=== PATIENT | male | born 1955 | race Caucasian/White ===

== ENCOUNTER 2018-04-21 09:03 | Inpatient (IN) ==
[2018-04-21 11:09] LABS: BASO# 0.02 X1000 (0.0-0.2); BASO% 3.9 % (0.0-0.8); EOS# 0.16 X1000 (0.0-0.7); EOS% 31.4 % (0.0-10.0); HEMATOCRIT 31.1 % (42.0-52.0); HEMOGLOBIN 10.3 g/dL (14.0-18.0); LYMPH# 0.28 X1000 (1.2-3.4); LYMPH% 54.9 % (20.5-51.1); MCH 29.8 PG (27-31); MCHC 33.1 g/dL (33-37); MCV 89.9 FL (81-99); MONO# 0.02 X1000 (0.11-0.59); MONO% 3.9 % (1.7-9.3); MPV 10.4 FL (7.4-10.4); NEUT% 5.9 % (42.2-75.2); PLT 88 X1000 (130-400); RBC 3.46 XMIL (4.7-6.1); RDW 16.3 % (11.5-14.5); WBC 0.51 X1000 (4.8-10.8)
[2018-04-21] MEDS ORDERED: NS 1,000 ML IV SCH (11:15)
[2018-04-21 11:16] LABS: NEUT# 0.03 X1000 (1.4-6.5)
[2018-04-21 11:34] LABS: AGAP 12; ALB/GLOB RATIO 1.3; ALBUMIN 3.6 g/dL (3.5-5.0); ALKALINE PHOSPHATASE 119 U/L (32-122); BUN 6 mg/dL (8-22); CALCIUM 8.2 mg/dL (8.8-10.2); CHLORIDE 100 mmol/L (98-107); COSMO 276; CREATININE 0.6 mg/dL (0.7-1.2); ESTIMATED GFR > 60; GLUCOSE 141 mg/dL (70-104); GOT 31 U/L (10-34); GPT 41 U/L (10-44); POTASSIUM 2.9 mmol/L (3.5-5.1); SODIUM 138 mmol/L (136-145); TCO2 26 mmol/L (25-35); TOTAL BILIRUBIN 1.12 mg/dL (0.20-1.00); TOTAL PROTEIN 6.4 g/dL (6.3-8.3)
[2018-04-21 11:37] LABS: EOS 20 % (1-10); LYMPHS 70 % (21-51); MONO 5 % (1-9)
[2018-04-21 11:38] LABS: URINE SOURCE CLEAN CATCH
[2018-04-21 11:39] LABS: HYPOCHROM 1+
[2018-04-21 11:47] LABS: BILIRUBIN URINE SMALL (NEGATIVE); BLOOD URINE NEGATIVE (NEGATIVE); COLOR ORANGE; GLUCOSE URINE TRACE mg/dL (NEGATIVE); KETONE URINE NEGATIVE (NEGATIVE); LEUKOCYTES URINE NEGATIVE (NEGATIVE); NITRITE URINE NEGATIVE (NEGATIVE); PH URINE 6.5; PROTEIN URINE 100 mg/dL (NEGATIVE); SP GRAVITY URINE 1.026; TURBIDITY URINE HAZY (CLEAR); UROBILINOGEN URINE 2 mg/dL (NORMAL)
[2018-04-21 11:51] LABS: UR EPITHELIAL CELLS >10 /HPF (<10); URINE BACTERIA NEGATIVE /HPF; URINE RBC <10 /HPF (<10)
[2018-04-21] MEDS ORDERED: POTASSIUM CHLORIDE 60 MEQ in NS 500 ML IV ONE (11:56)
[2018-04-21 12:00] LABS: URINE CASTS GRANULAR PRESENT; URINE SMALL ROUND CELLS RENAL PRESENT
--- NOTE | 2018-04-21 12:11 | Diag Imaging Result Doc PS360 ---
EXAM: CT ABD/PELVIS W/IV CONT ONLY HISTORY: metastatic lymphoma TECHNIQUE: CT abdomen and pelvis with intravenous contrast COMPARISON: 03/26/2018 FINDINGS: The gallbladder has been removed. There is fatty infiltration of the liver. No significant change in the size of the spleen. Normal pancreas and adrenal glands. No solid renal mass. No hydronephrosis. No aortic aneurysm. There are mildly enlarged para-aortic and pericaval lymph nodes. No significant change in size. Small scattered mesenteric nodes are also similar. No bowel obstruction. No inflammation about the cecum. No abscess. There are scattered colonic diverticula. The urinary bladder is moderately distended and is normal. The appearance of the bones are unchanged compared to the prior study. IMPRESSION: Stable CT of the abdomen and pelvis. This exam was performed using automated exposure control, adjustment of mA or kV according to patient size, and/or use of iterative reconstruction technique. Electronically signed by Joshua Farias 04/21/2018 12:09 PM
--- NOTE | 2018-04-21 12:55 | PROVIDER DOCUMENTATION ---
This chart was entered by Cira Shaw Scribe, acting as scribe for Efren Granados MD. HPI-Abdominal Pain/GI Problem - General Chief Complaint: Abdominal Pain Stated Complaint: COLITIS? CANCER PT ON TREATMENT Time Seen by Provider: 04/21/18 10:23 Source: patient, family () Allergies/Adverse Reactions: Patient Allergies Allergy/AdvReac Type Severity Reaction Status Date / Time codeine Allergy VOMITING Verified 02/19/18 10:10 Home Medications: Home Medication List Medication Instructions Recorded Confirmed Last Taken Type Allopurinol 300 mg PO ORDERED 04/03/14 04/14/18 04/14/18 History Alprazolam [Xanax] 1 mg PO BID 04/03/14 04/14/18 04/14/18 History Citalopram [Celexa] 20 mg PO DAILY 04/03/14 04/14/18 04/14/18 History Levothyroxine [Synthroid] 100 mcg PO DAILY 04/03/14 04/14/18 04/14/18 History Losartan/Hydrochlorothiazide 1 dose PO DAILY 04/03/14 04/14/18 04/14/18 History [Hyzaar 100-25 Tablet] Montelukast [Singulair] 10 mg PO DAILY 08/22/17 04/14/18 04/13/18 History Omeprazole [Prilosec] 40 mg PO DAILY 02/02/18 04/14/18 04/14/18 History Finasteride [Proscar] 5 mg PO DAILY 02/18/18 04/14/18 04/14/18 History Temazepam [Restoril] 15 mg PO QHS 03/26/18 04/14/18 04/13/18 History Diphenhyramine/Al&mg Oh/Lido [Mbx 15 ml MT 4XDAY PRN PRN #1 bottle 04/01/18 Unknown Rx Solution] Potassium Chloride E.r. [Klor-Con] 40 meq PO BID #10 tab 04/01/18 04/14/18 Unknown Rx Promethazine [Phenergan] 12.5 mg PO Q4-6H PRN PRN #20 tab 04/01/18 04/14/18 Rx Hydrocodone/APAP 10 mg/325 mg 0.5 each PO Q4H PRN PRN 04/14/18 04/14/18 History [[place]-10] - History of Present Illness-ABD Nature of Presenting Problems: 62 yowm presents to the ed with c/o abdominal pain, dysuria, decreased appetite , dehydration, and diarrhea.. pt sts was admitted 3 weeks prior with colitis and feels this may be the same. pt is currently receiving tx for Hodgkins Lymphoma and last chemo tx was 1 week prior. pt has port in rt upper chest. pt Abdominal Pain Onset Location: reports: generalized abdomen Quality of Pain: reports: aching Severity in ED: reports: moderate (11/27) Onset/Duration: reports: this morning (0400am) Timing: reports: still present Activities at Onset: reports: light activity Exposure to sick contacts?: No Modifying Factors: improves with: nothing Associated Symptoms: reports: diarrhea, genitourinary problems (dysuria), loss of appetite, malaise, muscle aches. denies: chest pain, fever/chills, nausea, shortness of breath, vomiting Last BM: last night Dark Stools Present?: reports: none noticed Rectal Bleeding: reports: none # of Diarrhea Episodes: 2 Rectal Pain: reports: none # of Vomiting Episodes: 0 Emesis Description: reports: none Bruising or Bleeding Gums?: No Similar Symptoms Previously?: Yes (colitis 3 weeks prior) Recently seen or treated by another doctor?: Yes (was admitted to hosp) Review of Systems - Adult - REVIEW OF SYSTEMS - ADULT Constitutional: reports: see HPI, weight loss (40lbs in 6 months). denies: chills, fever Eyes: reports: no symptoms reported Ears, Nose, Mouth & Throat: reports: no symptoms reported Cardiovascular: denies: chest pain, palpitations Respiratory: denies: shortness of breath, wheezing Gastrointestinal: reports: see HPI, abdominal pain, diarrhea, poor appetite. denies: nausea, vomiting Genitourinary: reports: see HPI, dysuria Musculoskeletal: reports: see HPI, muscle aches Integumentary: reports: see HPI, hair loss (due to chemo) Neurological: denies: dizziness/vertigo, headache/migraines, slurred speech Psychiatric: reports: no symptoms reported Endocrine: reports: no symptoms reported Hematologic/Lymphatic: reports: no symptoms reported Allergic/Immunologic: reports: no symptoms reported All Other Systems: Reviewed and Negative Past History - Adult - PAST MEDICAL HISTORY-ADULT Review of Records: reports: Old Records Reviewed, Nursing Assessment Review, Medications Reviewed, Social history reviewed & non-contributory. Major Childhood Illnesses: reports: denies history Cardiovascular: reports: HTN Respiratory: reports: denies history Gastrointestinal: reports: GERD Genitourinary: reports: denies history Musculoskeletal: reports: denies history Neurological: reports: denies history Psychiatric: reports: depression Endocrine/Immune: reports: denies history Other Conditions: reports: other cancer (hodgkins lymphoma) - PRIOR SURGERIES/PROCEDURES Surgical/Procedure History: reports: appendectomy, cholecystectomy, other ( sinus sx) - IMMUNIZATION STATUS Childhood Immunizations: See Nurse Assessment Flu Vaccine: See Nurse Assessment - FAMILY HISTORY Family History: reviewed, not pertinent - SOCIAL HISTORY Smoking: denies Substance Use: denies Living Situation: family Physical Exam-General - PHYSICAL EXAM-ADULT Initial Vital Signs Reviewed: Yes - CONSTITUTIONAL General Appearance: alert, no apparent distress, obese - EYES Eyes: PERRL/EOMI, pale conjunctivae - HEAD, EARS, NOSE, MOUTH & THROAT HENMT: normocephalic/atraumatic. negative: moist mucous membranes - NECK Neck: normal inspection - RESPIRATORY Respiratory: chest non-tender, lungs clear, normal breath sounds - CARDIOVASCULAR Cardiovascular: normal peripheral pulses, tachycardia (114) - CHEST (BREASTS) Chest/Breast: other (port placed in rt upper chest) - GASTROINTESTINAL (ABDOMEN) Abdominal Exam: normal bowel sounds, soft, tenderness (generalized), other ( well healed scar on rt side of abdoman from previous sx) - LYMPHATIC Lymphatic: no adenopathy - MUSCULOSKELETAL Back Exam: normal inspection, no CVA tenderness, no vertebral tenderness Extremity: normal range of motion, non-tender, no pedal edema, no calf tenderness, normal capillary refill, pelvis stable - SKIN Integumentary: warm/dry, pallor - NEUROLOGIC Neurologic: grossly normal, no motor/sensory deficits - PSYCHIATRIC Psych/Mental Status: normal mood/affect, normal thought content, normal thought process, oriented x 3 Progress - PLAN OF CARE/RESULTS Progress/Plan/Lab Results: Vital Signs - 8 hr 04/21/18 09:09 Temperature 98.2 F Pulse Rate 114 H Respiratory Rate 22 Blood Pressure 116/63 O2 Sat by Pulse Oximetry 98 pt sts thursday he saw his oncologist and is WC 4.4. Result Diagrams: 04/21/18 10:44 04/21/18 10:44 - REASSESSMENT Reassessment #1 Time Reassessed: 11:09 (pt sts took pain meds this morning at 0400am and ate some crackers) Reassessment #2 Time Reassessed: 12:21 Status: unchanged Reassessment Comment: dr at bedside - CT/MRI 1 CT Study: Abdomen (EXAM: CT ABD/PELVIS W/IV CONT ONLY HISTORY: metastatic lymphoma TECHNIQUE: CT abdomen and pelvis with intravenous contrast COMPARISON: 03/26/2018 FINDINGS: The gallbladder has been removed. There is fatty infiltration of the liver. No significant change in the size of the spleen. Normal pancreas and adrenal glands. No solid renal mass. No hydronephrosis. No aortic aneurysm. There are mildly enlarged para-aortic and pericaval lymph nodes. No significant change in size. Small scattered mesenteric nodes are also similar. No bowel obstruction. No inflammation about the cecum. No abscess. There are scattered colonic diverticula. The urinary bladder is moderately distended and is normal. The appearance of the bones are unchanged compared to the prior study. IMPRESSION: Stable CT of the abdomen and pelvis. This exam was performed using automated exposure control, adjustment of mA or kV according to patient size, and/or use of iterative reconstruction technique. Electronically signed by Joshua Farias 04/21 12:09 PM 04/21/18 1209 Interpreting Physician: Joshua Farias MD Dictated Date/Time: 04/21/18 1204 cc: Efren Granados MD; KAYLYNN STEWART), Pelvis - CONSULTS/PCP/HOSPITALIST Notification #1 *Consult/PCP/Hospitalist*: hospitalist dr castro Time Discussed: 12:28 Consult Disposition: Admit Departure - Departure Date of Disposition Decision: 04/21/18 Time of Disposition Decision: 12:29 DIAGNOSIS: Chemotherapy-induced neutropenia Hodgkin's lymphoma Qualifiers: Hodgkin lymphoma type: unspecified type Lymphoma site: unspecified region Qualified Code(s): C81.90 - Hodgkin lymphoma, unspecified, unspecified site Disposition: ADMITTED INPATIENT 09 Certified Medical Emergency: Emergent Condition: Stable Referrals and Follow-Ups: KAYLYNN STEWART [Primary Care Provider] - - Critical Care Note This patient required my direct & personal management of CC.: Yes Total Time (mins): 39 Critical Care Statement: This patient required my direct personal management to treat or rule out processes, the absence of which, could potentiallly result in sudden, clinically significant life or limb threatening deterioration. Comments: abnormal labs with tachycardia 114 Attestation - Physician/ ARVIND Attestation The physician spent face to face time with patient:: Yes Advanced Practice Provider documentation review:: Supervising physician onsite and consulted in the evaluation and care of this patient. The physician did have a face to face encounter with the patient. This chart was documented by the indicated scribe, (Cira Shaw Scribe) and accurately reflects the services I performed and decisions made by me, Efren Granados MD, as attested by the provider's signature.
[2018-04-21] MEDS ORDERED: ZOFRAN IV PRN (13:04)
[2018-04-21] MEDS ORDERED: PHENERGAN PO PRN (13:09)
[2018-04-21] MEDS ORDERED: MBX SOLUTION MT PRN (13:09)
[2018-04-21] MEDS ORDERED: NS 1,000 ML IV ONE ×3 (13:09→13:45)
[2018-04-21] MEDS ORDERED: LEVAQUIN 750 MG/D5W 750 MG/150 ML IVPB IV SCH (13:15)
[2018-04-21] MEDS ORDERED: PROTONIX IV SCH (13:30)
[2018-04-21] MEDS: PHENERGAN IV PRN ×2 (13:40→21:15)
[2018-04-21] MEDS: MORPHINE IV PRN ×2 (13:40→21:15)
[2018-04-21] MEDS: SODIUM CHLORIDE 0.9% INJ PRN (13:47)
--- NOTE | 2018-04-21 14:31 | HISTORY AND PHYSICAL ---
PRIMARY CARE PROVIDER: JAMES Burroughs ONCOLOGIST: Dr. Mullins CHIEF COMPLAINT: Abdominal pain, nausea. HISTORY OF PRESENT ILLNESS: Mr. Enzo Nicholson is a 62-year-old male with a medical history of recent treatment for enterocolitis. He has recently been diagnosed with Hodgkin's lymphoma, January 19, 2018, being followed by Dr. Mullins. He was recently here from 03/26 to 04/01/2018, he was treated for diffuse abdominal pain due to enterocolitis and treated for the enterocolitis along with hypokalemia. He presents with the exact same complaints today. He has had nausea but no vomiting. He has 3-4 adela colored loose stools per day that are small in amount. He states he even took an enema last night because he felt like he needed to have more bowel movement. He eats 3 meals a day, but only 1/3 of the meal he can take. His last meal was yesterday around lunch when he had a small amount of cornbread, a spoon of black -eyed peas, and a small amount of greens. He states the pain is severe, it is just around 1-2 inches below his umbilicus. He also complains of urine being a little darker with a red tinge to it and 101 degree fever last night. Approximately 1 week ago he took the chemo drug that is known as [place], also called Adriamycin, he states he felt good the day after but he usually does , and then his abdominal pain started. So, he has had this pain for at least 1 week. He associates with the exact same pain he felt when he had enterocolitis. The abdominal CT does not show any signs of enterocolitis at this time. He is pancytopenic with an extremely low white count and neutrophil count, and his lactate is up, so he will be treated as if he has enterocolitis with Levaquin and Flagyl. We will also send stool samples for culture. We will admit to a private room for pancytopenia and neutropenia. PAST MEDICAL HISTORY: 1. Hodgkin's lymphoma diagnosed January 19, 2018, being followed by Dr. Mullins. 2. Hypertension. 3. Coronary artery disease. 4. GERD. 5. BPH. 6. Gout. 7. Right ear Meniere's disease. 8. Hypothyroidism. 9. Anxiety and depression. 10. Insomnia. 11. Chronic hypokalemia. SURGICAL HISTORY: 1. On 02/19/2018 had right chest Port-A-Cath placed. 2. Appendectomy. 3. Cholecystectomy. 4. Sinus surgery. SOCIAL HISTORY: Denies tobacco, drinks a couple of Chirag and cokes about once a week with one of his friends. He denies any illicit drug use. Lives at home with his . FAMILY HISTORY: Strong family history of coronary artery disease in both mother , father, brother, and sister, and mother also had congestive heart failure. ALLERGIES: CODEINE. HOME MEDICATIONS: Have not been verified. REVIEW OF SYSTEMS: A 14-point review of systems was completed and all are negative except as mentioned above and in HPI. Other positives include a 40 pound weight loss since March 20. PHYSICAL EXAMINATION: VITAL SIGNS: Temperature 98.2. Heart rate 114. Respiratory rate 22. Blood pressure 116/63. O2 saturation 98% on room air. He is 6 feet 3 inches tall, 275 pounds with a BMI 34.4. GENERAL: Mr. Enzo Nicholson is a 62-year-old male. He is in no acute distress. He is able to answer questions appropriately. HEENT: Atraumatic and normocephalic. Pupils are equal, round and reactive to light. Extraocular movements were intact. Mucous membranes are dry. NECK: Trachea midline. CARDIOVASCULAR: S1, S2, tachycardic rate and rhythm. No rubs, gallops, or murmurs. There is trace lower extremity edema. +2 dorsalis and radial pulses. Negative for JVD or carotid bruits. PULMONARY: Clear to auscultation with bilateral breath sounds. No accessory muscle use or work of breathing noted. He is tolerating room air. GASTROINTESTINAL: Soft, tender in the lower midabdominal area, about approximately 2 inches below his umbilicus, severe pain with palpation, hypoactive bowel sounds. EXTREMITIES: Moves all extremities equally with full range of motion. NEUROLOGICAL: A and O x4. Follows commands. Sensory is intact. SKIN: Warm, dry, and intact but pale. LABORATORY DATA: White blood cells 0.51, hemoglobin 10, hematocrit 31, platelet count 88, neutrophil total count 0.03. Sodium 138, potassium 2.9, BUN 6, creatinine 0.6, glucose 141, calcium 8.2, bilirubin 1.12, AST 31, ALT 41, albumin 3.6, serum lactate 2.6. Urinalysis: 100 protein, small bilirubin, 2 urobilinogen dipsticks, 10-20 white blood cells, greater than 10 epithelial cells, small round cells renal presence, urine casts granular present , negative for bacteria, negative for yeast. IMAGING: Abdominopelvic CT was stable, there is scattered colonic diverticula, but essentially negative report, no pertinent findings. ASSESSMENT AND PLAN: 1. Diffuse abdominal pain specifically just below the umbilicus. We will do morphine p.r.n. for pain control. Start him on Levaquin and Flagyl as he was recently treated for enterocolitis although it does not show it on the CT, it can be a post chemo finding. We will do clear liquids for now. Dr. Padron has been reconsulted. 2. Pancytopenia with significant neutropenia. Dr. Mullins consulted, we will do neutropenic diet with private room. 3. Hodgkin's lymphoma followed by Dr. Mullins. 4. Possible sepsis. He is tachycardic, he had a fever he complained of last night, he has elevated lactate of 2.6, we will do a repeat on the lactate. He will get 30 mL/kg of IV fluids, kept on IV fluid hydration and started on Levaquin and Flagyl. 5. Hypokalemia. He is receiving 60 IV and 40 twice a day p.o. 6. Hyperbilirubinemia. This is a new finding, it was normal on the 01 of April at 0.31 and now 1.12. Possibly from chemo or dehydration. He is receiving IV fluids for now. 7. Thrombocytopenia. Platelet count 88 on April 01, it was 325, we will monitor closely for signs or symptoms of bleeding. 8. Anemia. Currently at baseline 10.3 and 31.1. No new changes. 9. Deep venous thrombosis prophylaxis with SCDs. 10.Benign prostatic hypertrophy. Continue home medication once verified. 11.Hypothyroidism. Continue Synthroid. 12.Anxiety and depression. Continue with Xanax. 13.Hypertension. Awaiting for home medication reconciliation. 14.History of coronary artery disease. Denies chest pain. Dictated by JAMES Kim for Chente Mckenzie MD cc: JAMES Kim MD Sammy Becdach, MD Kimberly Samuels Khurshid Yousuf, MD I agree with the History and physical mentioned above. A separate addendum is dictated. MTDD
--- NOTE | 2018-04-21 15:28 | Diag Imaging Result Doc PS360 ---
EXAM: CHEST-2 VIEWS HISTORY: leukopenia TECHNIQUE: Chest two views COMPARISON: 03/27/2018 FINDINGS: The lungs are well expanded. The heart is not enlarged. There is a right jugular portacatheter. No pneumothorax. The vessels are not distended. There are no infiltrates. Likely scarring in the left lung base. No pleural effusions. IMPRESSION: No pneumonia. Electronically signed by Joshua Farias 04/21/2018 3:25 PM
--- NOTE | 2018-04-21 16:13 | CONSULTATION ---
DATE OF CONSULTATION: 04/21/2018 REASON FOR CONSULTATION: Abdominal pain, nausea. History of enterocolitis. HISTORY OF PRESENT ILLNESS: This is a 62-year-old white male who we had seen during a recent hospitalization. He was in the hospital from to 04/01/201818 and treated for abdominal pain and CT scan findings of enterocolitis. He was treated with antibiotics. The patient was recently diagnosed with Hodgkin lymphoma in January 2018. He has been following with Dr. Mullins. He has so far received 3 chemotherapy treatments. Patient's last treatment was one week ago last Thursday. Patient states he usually feels good the day after, but then several days later he starts to have side effects from the chemotherapy. He has reported progressive decreased appetite, early satiety. He has had abdominal pain, at times severe. Reports pain located around the umbilicus, radiating to the back. He also reports having some left lower quadrant abdominal pain. He had noticed some darkness in his urine. He had reported a temperature up to 101 yesterday. He states he has had bowel urgency with only small stools. He reports watery stools at times and then at times he only has a small amount of soft stool noted, color to be light gray color. He has had some occasional blood when he wipes he has related to possible hemorrhoids. He reports last colonoscopy was over 10 years ago. He did take an enema last night to see if he could get some relief from his abdominal pain. He called Dr. Mullins's office and was instructed to come to the emergency room for further evaluation. Patient has had CT scan that showed stable CT of the abdomen and pelvis. There was no noted bowel obstruction, no inflammation, no abscess noted. There were scattered colonic diverticula. Urinary bladder was moderately distended. There was no evidence of colitis. Patient has an ultrasound of the abdomen ordered. PAST MEDICAL HISTORY: Recent diagnosis of Hodgkin lymphoma, following with Dr. Mullins, hypertension, coronary artery disease, GERD, history of gout, history of Meniere disease, hypothyroidism, anxiety/depression, insomnia. PAST SURGICAL HISTORY: Port placement 02/2018, appendectomy, cholecystectomy, sinus surgery. ALLERGIES: Codeine causing vomiting. HOME MEDICATIONS: Allopurinol 300 mg as directed, Xanax 1 mg twice a day, Celexa 20 mg daily, MBX oral solution 4 times a day as needed, Proscar 5 mg daily, [place] 10/325 mg every 4 hours as needed, Synthroid 100 mcg daily, Hyzaar 100/25 mg daily, Singulair 10 mg daily, Prilosec 40 mg daily, potassium 40 mEq twice a day, Phenergan 12.5 mg every 4 to 6 hours as needed, Restoril 15 mg every night. SOCIAL HISTORY: Denies tobacco use. Occasional alcohol use. He is . REVIEW OF SYSTEM: HEENT: Reports some nausea, denies vomiting. Respiratory : Without current complaints. Abdomen: Severe pain around the umbilical area and left quadrant area. Poor appetite, increased gas. Decreased bowel movements with watery stool at times. Reports nausea, but denies vomiting. Genitourinary: He has had some dark colored urine. Extremities: No swelling reported. Neurologic: No history of stroke or seizures. PHYSICAL EXAMINATION: Vital Signs: Temperature 99.3, pulse 91, respirations 20 , blood pressure 136/73. General: Patient is awake, alert. No acute distress. HEENT: Normocephalic, atraumatic. Pupils equal, round, reactive to light. Sclerae nonicteric. Cardiovascular: Regular rate and rhythm. Pulmonary: Lung sounds clear bilaterally. He has a port to the right chest. Gastrointestinal: Soft, but tenderness with palpation. Positive bowel sounds. Extremities: No lower extremity edema noted. Pedal pulses present bilaterally. Neurologic: Cranial nerves 2-12 grossly intact. Patient is awake, alert and oriented to person, place, and time. DIAGNOSTIC RESULTS/LABORATORY: Hematology: WBC 0.51, hemoglobin 10.3, hematocrit 31.1, MCV 89.9, platelet 88,000. Chemistry: Sodium 138, potassium 2.9, chloride 100, CO2 26, BUN 6, creatinine 0.6, glucose 141, total bilirubin 1.12, AST 31, ALT 41, alkaline phosphatase 119. C-reactive protein 79.84. Urinalysis showed a small amount of bilirubin, [address] scan of the abdomen and pelvis showed stable scan with no evidence of obstruction or inflammation. No evidence of colitis seen on CT scan. Patient has ultrasound ordered that is pending. ASSESSMENT AND PLAN: 1. Abdominal pain. 2. Recent diagnosis of Hodgkin lymphoma with last chemotherapy treatment one week ago. 3. Pancytopenia, thrombocytopenia. Patient is following with Dr. Becdach. 4. Hypokalemia. Patient is receiving replacement. 5. Mild anemia. PLAN: Continue symptomatic treatment and supportive care. Continue antibiotics that have been ordered. Follow neutropenic precautions, neutropenic diet also has been ordered. We will follow on the results of the ultrasound. Possibility of GI symptoms related to side effects from chemotherapy. Again, will continue symptomatic treatment p.r.n. Medications as needed. Would not recommend endoscopy procedures at present time. Further plans will be made according to his progress. Patient was also seen by Dr. Padron. Thank you for this consultation. Dictated by JAMES Thibodeaux for Juan Padron MD cc: JAMES Alvarez MD [facility]
--- NOTE | 2018-04-21 16:18 | Diag Imaging Result Doc PS360 ---
EXAM: US ABDOMEN-COMPLETE HISTORY: abd pain TECHNIQUE: Abdominal ultrasound COMPARISON: None. FINDINGS: No abdominal aortic aneurysm. Normal inferior vena cava. The gallbladder has been removed. The common bile duct measures 5 mm. No focal hepatic abnormality. Normal right kidney. No hydronephrosis. The pancreas is obscured. Normal left kidney. No hydronephrosis. No ascites. The spleen measures 15.2 cm in length. IMPRESSION: 1.Cholecystectomy 2.Mild splenomegaly Electronically signed by Joshua Farias 04/21/2018 4:16 PM
[2018-04-21] MEDS: NORCO-10 PO PRN (16:56)
[2018-04-21] MEDS: FLAGYL 500 MG/NS 500 MG/100 ML IVPB IV SCH ×2 (17:01→21:07)
[2018-04-21] MEDS: ZYLOPRIM PO SCH (17:03)
[2018-04-21] MEDS ORDERED: KLOR-CON PO SCH (21:00)
[2018-04-21] MEDS: RESTORIL PO SCH (21:04)
[2018-04-21] MEDS: KLOR-CON PO SCH (21:04)
[2018-04-21] MEDS: PERICOLACE PO SCH (21:04)
[2018-04-21] MEDS: XANAX PO SCH (21:04)
[2018-04-22] MEDS: NORCO-10 PO PRN ×3 (00:22→17:27)
[2018-04-22] MEDS: SODIUM CHLORIDE 0.9% INJ SCH (00:23)
[2018-04-22] MEDS: NS 1,000 ML IV SCH ×3 (00:24→11:29)
[2018-04-22] MEDS: MORPHINE IV PRN ×5 (03:50→21:53)
--- NOTE | 2018-04-22 05:07 | HISTORY AND PHYSICAL ---
Addendum to my nurse practitioner. HISTORY: I went to bedside and evaluated the patient by myself. In brief, Mr. Nicholson is a 62 year old man with a history of Hodgkin's lymphoma who comes in with complaints of abdominal pain and adela colored his stools. He has received chemotherapy including brentuximab and AVD. The last dose was today after which he complained of abdominal pain and he was noted to have severe pancytopenia and hypokalemia. Vitals evaluation suggests he is currently afebrile. However, at home, he had a fever episode. He is normotensive and he is no longer tachycardic. PHYSICAL EXAMINATION: He had generalized tenderness around periumbilical region. Otherwise, air entry bilaterally equal. No wheezing, rhonchi or crackles. Laboratory suggests pancytopenia, hypokalemia, and normal kidney function. ASSESSMENT AND PLAN: Likely sepsis due to enterocolitis. Though CT scan is unremarkable, he has severe pancytopenia. This could be in the setting of brentuximab induced GI side effects. I will continue intravenous fluids, intravenous antibiotics, and will also get stool studies. We will follow up with frequent CBCs. We will consult Gastroenterology and Oncology. Plan of care were discussed with the patient and his at bedside who is his surrogate decision maker. All of their questions have been answered. cc: Chente Mckenzie MD [facility]ITAL[facility]iliana
[2018-04-22] MEDS: SYNTHROID PO SCH (06:21)
[2018-04-22] MEDS: FLAGYL 500 MG/NS 500 MG/100 ML IVPB IV SCH ×3 (06:21→21:53)
[2018-04-22 07:11] LABS: AGAP 8; ALKALINE PHOSPHATASE 89 U/L (32-122); BUN 3 mg/dL (8-22); CALCIUM 8.3 mg/dL (8.8-10.2); CHLORIDE 104 mmol/L (98-107); COSMO 277; CREATININE 0.6 mg/dL (0.7-1.2); ESTIMATED GFR > 60; GLUCOSE 118 mg/dL (70-104); GOT 24 U/L (10-34); GPT 33 U/L (10-44); MAGNESIUM 1.5 mg/dL (1.5-2.7); POTASSIUM 3.4 mmol/L (3.5-5.1); SODIUM 140 mmol/L (136-145); TCO2 28 mmol/L (25-35)
[2018-04-22 07:25] LABS: BASO# 0.01 X1000 (0.0-0.2); BASO% 1.5 % (0.0-0.8); EOS# 0.18 X1000 (0.0-0.7); EOS% 26.9 % (0.0-10.0); HEMATOCRIT 25.8 % (42.0-52.0); HEMOGLOBIN 8.3 g/dL (14.0-18.0); LYMPH# 0.42 X1000 (1.2-3.4); LYMPH% 62.7 % (20.5-51.1); MCH 29.5 PG (27-31); MCHC 32.2 g/dL (33-37); MCV 91.8 FL (81-99); MONO# 0.04 X1000 (0.11-0.59); MPV 10.1 FL (7.4-10.4); NEUT% 2.9 % (42.2-75.2); PLT 73 X1000 (130-400); RBC 2.81 XMIL (4.7-6.1); RDW 16.1 % (11.5-14.5); WBC 0.67 X1000 (4.8-10.8)
[2018-04-22 07:26] LABS: NEUT# 0.02 X1000 (1.4-6.5)
[2018-04-22 07:36] LABS: LYMPHS 60 % (21-51); MONO 12 % (1-9); SEGS 28 % (42-75)
[2018-04-22] MEDS ORDERED: SYNTHROID SCH (09:00)
[2018-04-22] MEDS: KLOR-CON PO SCH ×2 (09:31→21:53)
[2018-04-22] MEDS: XANAX PO SCH ×2 (09:31→21:53)
[2018-04-22] MEDS: PROSCAR PO SCH (09:31)
[2018-04-22] MEDS: CELEXA PO SCH (09:31)
[2018-04-22] MEDS: PHENERGAN IV PRN ×4 (09:32→21:53)
--- NOTE | 2018-04-22 15:21 | PROGRESS NOTE ---
DATE: 04/22/2018 INTERVAL HISTORY: The patient's abdominal pain improved overall. Still increases intermittently, but relatively well controlled. Still with some diarrhea, but also improved from previous. No new complaints. Afebrile overnight. REVIEW OF SYSTEMS: Twelve point review of systems negative, except as per interval history. LABS: White count 0.67, hemoglobin 8.3, hematocrit 25.8, platelets 73, neutrophil percentage of 2.9. Sodium 140, potassium 3.4, creatinine 0.6, glucose 118, total protein 6, albumin 3. Urinalysis unremarkable. Bilirubin 0.8. Clostridium difficile toxin assay positive. Stool occult blood negative. IMAGING: CT abdomen and pelvis and abdominal ultrasound essentially unremarkable with only mild splenomegaly noted. OBJECTIVE: Vitals: T-max 99.3 degrees, pulse 93, respirations 18, blood pressure 149/86, O2 saturation 93% on room air. General: No acute distress. Vitals as above. HEENT: Normocephalic, atraumatic. Moist mucous membranes. Chest: Port noted in right upper chest. Cardiovascular: Regular rate and rhythm. No murmurs, rubs, or gallops. Pulmonary: Clear to auscultation bilaterally. Abdomen: Soft. Minimal diffuse tenderness without rebound or guarding. Nondistended. Bowel sounds positive. Extremities: Peripheral pulses intact. No clubbing, cyanosis, or edema. Neurologic: Cranial nerves 2-12 grossly intact. No focal motor or sensory deficits. Psychiatric: Normal mood and affect. Awake, alert, oriented x3. Skin: No new rashes or lesions noted. ASSESSMENT AND PLAN: 1. Abdominal pain, Clostridium difficile colitis: Patient on therapy with Flagyl. Initially suspected the patient's abdominal symptoms were chemotherapy-related, but Clostridium difficile assay positive. Will discontinue Levaquin and continue Flagyl to treat diarrhea with some improvement, but still ongoing. Continue therapy and monitor. 2. Pancytopenia and severe neutropenia: Patient with slight downtrend of red blood cells and platelets. No need for transfusion at this time. Neutrophil count remains markedly low in the double digits. On granulocyte colony-stimulating factor as per Oncology. Continue neutropenic precautions and monitor closely. 3. Hodgkin lymphoma: Followed by Dr. Mullins. 4. Hypokalemia: Still somewhat low today, although improved from yesterday. We will continue to replete and monitor. 5. Benign prostatic hyperplasia: Continue home medication. 6. Hypothyroidism: Continue home Synthroid. 7. Anxiety: Continue home Xanax. 8. Hypertension: Holding home medications currently with only mildly elevated blood pressure. If blood pressure becomes further elevated, then we will consider restarting home medications. 9. Gastroesophageal reflux disease: Continue proton pump inhibitor. 10. Deep vein thrombosis prophylaxis: Sequential compression devices.
[2018-04-22] MEDS: GRANIX SUBQ SCH (15:40)
[2018-04-22] MEDS: VANCOCIN PO SCH (21:53)
[2018-04-22] MEDS: RESTORIL PO SCH (21:53)
[2018-04-22] MEDS: PERICOLACE PO SCH (21:53)
[2018-04-23] MEDS: NS 1,000 ML IV SCH ×4 (00:27→16:50)
[2018-04-23] MEDS: TYLENOL PO PRN ×2 (00:27→20:25)
[2018-04-23] MEDS: MORPHINE IV PRN ×5 (02:07→20:22)
[2018-04-23] MEDS: VANCOCIN PO SCH ×4 (02:08→20:25)
[2018-04-23] MEDS: FLAGYL 500 MG/NS 500 MG/100 ML IVPB IV SCH (06:19)
[2018-04-23] MEDS: SYNTHROID PO SCH (06:20)
[2018-04-23] MEDS: PHENERGAN IV PRN ×4 (06:20→20:23)
[2018-04-23] MEDS: NORCO-10 PO PRN ×2 (09:13→18:11)
[2018-04-23] MEDS: CELEXA PO SCH (09:14)
[2018-04-23] MEDS: GRANIX SUBQ SCH (09:14)
[2018-04-23] MEDS: KLOR-CON PO SCH ×2 (09:14→20:24)
[2018-04-23] MEDS: XANAX PO SCH ×2 (09:14→20:24)
[2018-04-23] MEDS: PROSCAR PO SCH (09:14)
[2018-04-23] MEDS: ZYLOPRIM PO SCH (09:14)
[2018-04-23 10:39] LABS: BASO# 0.02 X1000 (0.0-0.2); EOS# 0.15 X1000 (0.0-0.7); EOS% 22.7 % (0.0-10.0); HEMATOCRIT 25.5 % (42.0-52.0); HEMOGLOBIN 8.3 g/dL (14.0-18.0); LYMPH# 0.39 X1000 (1.2-3.4); LYMPH% 59.1 % (20.5-51.1); MCH 29.4 PG (27-31); MCHC 32.5 g/dL (33-37); MCV 90.4 FL (81-99); MONO# 0.08 X1000 (0.11-0.59); MONO% 12.1 % (1.7-9.3); MPV 9.8 FL (7.4-10.4); NEUT% 3.1 % (42.2-75.2); PLT 93 X1000 (130-400); RBC 2.82 XMIL (4.7-6.1); WBC 0.66 X1000 (4.8-10.8)
[2018-04-23 10:43] LABS: NEUT# 0.02 X1000 (1.4-6.5)
[2018-04-23] MEDS: SODIUM CHLORIDE 0.9% INJ SCH ×2 (10:55→16:31)
--- NOTE | 2018-04-23 11:29 | PROGRESS NOTE ---
DATE: 04/23/2018 SUBJECTIVE: The patient still reports abdominal pain that radiates to his back. He is having diarrhea, but it has improved some. Vancomycin was started yesterday evening. OBJECTIVE: Vital Signs: Temperature 99.7 degrees, pulse 100, respirations 18, blood pressure 142/73. General: Generally, the patient is awake, alert, in no acute distress. Abdomen: Soft, with diffuse tenderness. Positive bowel sounds. LABORATORY: Hematology: WBC 0.66, hemoglobin 8.3, hematocrit 25.5, MCV 90.4, platelets 93. Chemistry: Sodium 140, potassium 3.4, chloride 104, CO2 28. BUN 3, creatinine 0.6, glucose 118. MICROBIOLOGY: C. difficile toxin and antigen are positive. ASSESSMENT AND PLAN: 1. Abdominal pain. 2. Clostridium difficile colitis. We will discontinue Flagyl and continue vancomycin. 3. Abdominal pain. Get KUB to rule out toxic megacolon. 4. Pancytopenia and neutropenia. Continue to follow with Dr. Mullins. 5. Hodgkin lymphoma. Has received chemotherapy following with Dr. Mullins. 6. Hypokalemia. Patient has received replacement. PLAN: Continue symptomatic treatment and supportive care. Continue vancomycin and discontinue Flagyl. Get KUB. Further plans to be made according to findings. I have discussed this case with Dr. Padron. Dictated by JAMES Thibodeaux for Juan Padron MD cc: JAMES Alvarez MD
--- NOTE | 2018-04-23 11:50 | Diag Imaging Result Doc PS360 ---
EXAM: KUB ABDOMEN HISTORY: abdomen pain, cdiff. TECHNIQUE: Two views COMPARISON: 03/27/2018 FINDINGS: No bowel obstruction. No organomegaly. Moderate to prominent degenerative spine changes with long-standing reactive changes to the hips. No abnormal abdominal calcifications. IMPRESSION: No bowel obstruction. Electronically signed by Joshua Farias 04/23/2018 11:48 AM
--- NOTE | 2018-04-23 13:18 | HEMO/ONC CONSULTATION ---
DATE: 04/23/2018 REQUESTING PHYSICIAN: DR. Chente Mckenzie. We appreciate this consult. CHIEF COMPLAINT: Hodgkin lymphoma. HISTORY OF PRESENT ILLNESS: Mr. Enzo Nicholson is a 62-year-old male, well known to Dr. Mullins, with a history of Hodgkin lymphoma, stage IIIS, mixed cellularity type. The patient is currently on ABZD plus Adcetris. The patient has a recent history of enterocolitis with admission to [facility]. The patient presented to [facility] secondary to similar complaints. He reports that he experienced nausea without vomiting, early satiety, and 3 to 4 adela-colored loose stools daily. Additionally, the patient reports that he had significant abdominal pain reminiscent of his bout of enterocolitis. The patient underwent stool testing and was found to have Clostridium difficile toxin positive stool. He is admitted for the same. We are consulted as the patient is well known to us. PAST MEDICAL HISTORY: 1. Classical Hodgkin lymphoma. 2. Hypertension. 3. Coronary artery disease. 4. Gastroesophageal reflux disease. 5. BPH. 6. Gout. 7. Meniere's disease. 8. Hypothyroidism. 9. Anxiety and depression. 10. Insomnia. 11. Chronic hypokalemia. PAST SURGICAL HISTORY: 1. Right chest port catheter placement. 2. Appendectomy. 3. Cholecystectomy. 4. Sinus surgery. SOCIAL HISTORY: The patient does not use tobacco or illicit drugs. He drinks alcohol occasionally. FAMILY HISTORY: Negative for any hematologic or oncologic disease. MEDICATIONS ON ADMISSION: 1. Amlodipine. 2. Gabapentin. 3. Allopurinol. 4. Losartan/hydrochlorothiazide. 5. Finasteride. 6. Omeprazole. 7. Alprazolam. 8. Montelukast 9. Indomethacin. 10. Fossa neutral. 11. Cinvanti. 12. Lidocaine/prilocaine topical cream. 13. Zofran. 14. Lomotil. 15. Promethazine. 16. Magic Mouthwash. 17. Sandostatin. 18. Restoril. 19. Potassium. ALLERGIES: Codeine. REVIEW OF SYSTEMS: A 14-point review of systems was obtained and is negative except for what is mentioned in the HPI. PHYSICAL EXAMINATION: General: Mr. Enzo Ng is a 62-year-old male lying supine in bed in no immediate distress. Vital Signs: Temperature 97.9, blood pressure 138/ 81, heart rate 102, respirations 18, O2 saturation 94% on room air. HEENT: Normocephalic, atraumatic. Mucous membranes are slightly pale and moist. Sclerae is anicteric. Extraocular movements intact. Neck: Supple. Lungs: Clear to auscultation bilaterally. Chest expansion is equal bilaterally. Cardiovascular: S1, S2 is heard without murmur, rub, or gallop. Abdomen: Distended. Tender to palpation throughout. Bowel sounds are decreased. No rebound or guarding is noted. Extremities: Without clubbing or cyanosis. He does have trace bilateral lower extremity edema. Dermatologic: No rashes, bruises, or lesions. Neurologic: The patient is awake, alert, and oriented x3. He has no focal motor deficits. LABORATORY DATA: Hemoglobin 8.3, hematocrit 25.8, white blood cell count is 0.67. Platelet count is 73,000. ANC is 0.02. Sodium 140, potassium 3.4, chloride 104, CO2 is 28. BUN 3, creatinine 0.6, glucose is 118. Calcium is 8.3, magnesium is 1.5. Bilirubin 0.80. Alkaline phosphatase 89, AST 24, ALT is 33, CRP 78.84. Urinalysis is negative for urinary tract infection. ASSESSMENT AND PLAN: 1. Hodgkin's disease of mixed cellularity type, stage IIIB-S. The patient is currently on ABVD plus Adcetris. We will hold treatment at this time until the patient's acute illness has resolved. 2. Clostridium difficile colitis. The patient is currently on Flagyl by IV. 3. Pancytopenia and severe neutropenia. The patient is on Levaquin prophylactically. He is on reverse isolation. We will place the patient on Granix daily. We will continue to monitor CBC. 4. Hypokalemia. Potassium is currently stable. We will continue to monitor and replete. 5. Anxiety. The patient will continue on the Xanax as prescribed. 6. Hypertension, well controlled, at this time. 7. Gastroesophageal reflux disease. The patient will continue on a proton pump inhibitor. 8. We will follow along with you and make further recommendations pending outcomes. The above reflects the history, exam, assessment and plan of Dr. Solorzano. Dictated by JAMES Pendleton for Kristi Solorzano MD cc: JAEMS Pendleton MD Siddharth Patel, MD I have seen and examined the patient and the above note reflects my history, physical exam and assessment and plan. Kristi Solorzano MD [facility]
--- NOTE | 2018-04-23 14:19 | HEMO/ONC PROGRESS NOTE ---
DATE: 04/23/2018 CHIEF COMPLAINT: "I'm feeling better at this time." OBJECTIVE: Vital signs is 99.1, blood pressure 148/83, heart rate 95, respirations 18, O2 saturation 93% on room air. HEENT is normocephalic and atraumatic. Mucous membranes are pale and moist. Sclerae anicteric. Extraocular movements were intact. Neck is supple. Lungs clear to auscultation bilaterally. Chest expansion is equal bilaterally. CVS: S1 and S2 heard. No murmurs, rubs or gallops. Abdomen: Soft, nondistended. Extremities without clubbing or cyanosis. He does have trace bilateral lower extremity edema. Dermatologic: No rashes, bruises or lesions. Neuro: The patient is awake, alert, and oriented x3. He has no focal deficit. ASSESSMENT AND PLAN: 1. Hodgkin's lymphoma on AVD and Adcetris. The patient is status post cycle 2, day 1. His next dose is due 04/28/2018. We will hold until the patient's acute illness improves. 2. Clostridium difficile colitis. The patient is on vancomycin by mouth. 3. Questionable sepsis. The patient is currently on Levaquin. 4. Anemia. Hemoglobin is stable at 8.3. We will continue to monitor. We would recommend transfusion if the patient's hemoglobin is less than 8.0 or in the setting of active bleeding. 5. Neutropenia. ANC is currently 0.02. The patient continues on Granix daily. 6. We will follow along with you and make further recommendations. We will sign off until Thursday at this time. The above reflects the history, exam, assessment and plan of Dr. Solorzano. Dictated by JAMES Pendleton for Kristi Solorzano MD cc: JAMES Pendleton MD I have seen and examined the patient and the above note reflects my history, physical exam and assessment and plan. Kristi Solorzano MD [facility]
--- NOTE | 2018-04-23 14:49 | PROGRESS NOTE ---
DATE: 04/23/2018 INTERVAL HISTORY: The patient still with some fairly significant abdominal pain only somewhat improved. Still with numerous watery bowel movements. One low-grade fever overnight, otherwise, no acute events. Continue GI complaints but no new issues. REVIEW OF SYSTEMS: Twelve-point review of systems negative except as per interval history. LABORATORY DATA: WBC 0.66, hemoglobin 8.3, hematocrit 25.5, platelets 93,000. Neutrophil percentage 3.1. Abdominal x-ray today: Still with no acute process. OBJECTIVE: Vital Signs: T-max 100.8, pulse 95, respirations 18, blood pressure 148/83, O2 saturation 93% on room air. PHYSICAL EXAMINATION: General: In no acute distress. Vital signs as above. HEENT: Normocephalic, atraumatic. Moist mucous membranes. No cervical adenopathy. Cardiovascular: Regular rate and rhythm. No murmurs, rubs, or gallops. Pulmonary: Clear to auscultation bilaterally. No wheezing, rales, or rhonchi. Abdomen soft. Still with slight diffuse tenderness but no guarding or rebound. Bowel sounds normoactive. Extremities: Peripheral pulses intact. No clubbing, cyanosis, or edema. Neurologic: Cranial nerves 2-12 grossly intact. No focal motor sensory deficits. Psychiatric: Normal mood and affect. Awake, alert, oriented x3. Skin: No new rashes or lesions noted. ASSESSMENT AND PLAN: 1. Abdominal pain, history of difficile colitis: Patient on therapy with Flagyl, but still with abdominal pain, diarrhea, and low-grade fever overnight. Transitioning to p.o. vancomycin after discussion with GI. If the patient continues to have issues, then we will consider either dual therapy with both vanc and Flagyl or possibly Dificid. Will increase morphine slightly to attempt to obtain better pain control. 2. Pancytopenia and severe neutropenia. The patient with blood counts that are essentially stable with some improvement in platelets. Remains markedly neutropenic and with fever overnight, likely due to Clostridium difficile as there is no other source of infection identified, but given febrile neutropenia, we will ask ID for their opinion regarding the need for broader antibiotics. On sherman-white colony-stimulating factor as per Oncology. Continue neutropenic precautions and monitor closely. 3. Hodgkin lymphoma followed by Dr. Mullins. 4. Hypokalemia, repleted previously. Repeat labs pending. We will monitor and replete as necessary. 5. Benign prostatic hypertrophy. Continue home finasteride. 6. Hypothyroidism. Continue home Synthroid. 7. Anxiety. Continue Xanax. 8. Hypertension. Holding home medications currently with only mild elevations in BP. Continue to monitor for now. 9. Gastroesophageal reflux disease. Continue proton pump inhibitor. 10. Deep vein thrombosis prophylaxis; sequential compression devices.
[2018-04-23] MEDS: MERREM 2 GM in NS 50 ML IV SCH (18:11)
[2018-04-23] MEDS: RESTORIL PO SCH (20:24)
[2018-04-23] MEDS: PERICOLACE PO SCH (20:24)
[2018-04-23] MEDS: SODIUM CHLORIDE 0.9% INJ PRN (20:24)
[2018-04-23] MEDS ORDERED: TUMS EXTRA STRENGTH PO ONE (23:14)
[2018-04-24] MEDS: MERREM 2 GM in NS 50 ML IV SCH ×2 (01:56→10:00)
[2018-04-24] MEDS: NS 1,000 ML IV SCH ×2 (02:33→14:22)
[2018-04-24] MEDS: MORPHINE IV PRN ×6 (02:33→22:30)
[2018-04-24] MEDS: PHENERGAN IV PRN ×5 (02:34→18:06)
[2018-04-24] MEDS: SODIUM CHLORIDE 0.9% INJ PRN ×2 (02:34→06:34)
[2018-04-24] MEDS: VANCOCIN PO SCH ×4 (02:57→20:30)
--- NOTE | 2018-04-24 02:58 | INFECTIOUS DISEASE CONSULT REP ---
DATE: 04/23/2018 CONCLUSION: The patient is pancytopenic secondary to chemotherapy for Hodgkin's lymphoma. He had a fever up to 102 degrees last night. He has been diagnosed with Clostridium difficile diarrhea. RECOMMENDATIONS: I agree with treating the patient with oral vancomycin for his Clostridium difficile diarrhea. I have started the patient on meropenem because of the patient having fever. DISCUSSION: The patient, starting 3 days ago, had severe abdominal pain and diarrhea. He also started having fever. Gradually, his diarrhea is getting better, as is his abdominal pain. His stool is positive for Clostridium difficile toxin and antigen. His blood and urine cultures are negative thus far. Stool culture is negative for pathogens. CT scan of the abdomen and pelvis shows adenopathy. Chest x-ray does not show any pneumonia. Urinalysis did not have any white blood cells or bacteria. The patient's CBC shows a white count of 660, hemoglobin 8.3, and platelet count 93,000. Creatinine is 0.6. GFR is greater than 60. Liver function studies are normal. PAST MEDICAL HISTORY/REVIEW OF SYSTEMS: General: The patient has lost 50 pounds in the past few months. Eyes and Ears: Patient has decreased hearing and vision. Neck: No stiffness. Respiratory: No cough. The patient gets short of breath, even with minimal activity. Cardiac: No chest pain or palpitations. GI: See present illness. The patient also has lost his appetite in the past few days. : No dysuria or flank pain. Bones, Joints, Muscles: No swollen joints or muscle aching. Neurologic: No seizures. No loss of motor function. PREVIOUS HOSPITALIZATIONS AND OPERATIONS: He has had an appendectomy, cholecystectomy, sinus surgery, placement of a right-sided Port-A-Cath, lymph node and bone marrow biopsies. MEDICAL DISEASES: Positive for Hodgkin's disease, gastroesophageal reflux disease, obesity, hypothyroidism, and hypertension. The patient tells me that since he lost 50 pounds, his blood pressure has become normal. INFECTIOUS DISEASE HISTORY: Positive for urinary tract infection. FAMILY HISTORY: Positive for diabetes mellitus, hypertension, myocardial infarction, and stroke. SOCIAL HISTORY: The patient lives just outside of [place]. He is . He has a cat as a pet. He is allergic to codeine. 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 ALLERGIES: He is allergic to codeine. HOME MEDICATIONS: Allopurinol, Xanax, Celexa, Proscar, hydrocodone, Synthroid, Singulair, Prilosec, Phenergan, and Restoril. PHYSICAL EXAMINATION: Vital Signs: The patient did spike a fever last night to 102 degrees. Now, his temperature is 98.8 degrees, pulse 97, respirations 18, blood pressure 144/72. The patient weighs 275 pounds. General: This is an ill-appearing, middle-aged male. He is in no acute distress. Head, Eyes, Ears, Nose, and Throat: He can hear my spoken words and see near objects. He does not have any white patches on his tongue. Neck: No meningismus. Lungs: Clear to auscultation. Cardiovascular: Heart rate is regular. Abdomen: Soft and nontender. Bowel sounds are present. Neurologic: The patient is alert. He can move his extremities. There is no tremor. His sensation is intact to touch. His memory as regarding his medical history is intact. Integument: No rash noted. Thank you for the consult. cc: Timmy Rosenberg MD
[2018-04-24] MEDS ORDERED: LOPRESSOR IV ONE (03:24)
[2018-04-24] MEDS ORDERED: NS 500 ML IV ONE (03:24)
[2018-04-24] MEDS: SYNTHROID PO SCH (06:35)
[2018-04-24 07:40] LABS: AGAP 12; BUN 1 mg/dL (8-22); CALCIUM 8.1 mg/dL (8.8-10.2); CHLORIDE 102 mmol/L (98-107); COSMO 276; CREATININE 0.6 mg/dL (0.7-1.2); ESTIMATED GFR > 60; GLUCOSE 113 mg/dL (70-104); SODIUM 140 mmol/L (136-145); TCO2 26 mmol/L (25-35)
[2018-04-24 07:41] LABS: BASO# 0.02 X1000 (0.0-0.2); BASO% 1.5 % (0.0-0.8); EOS# 0.17 X1000 (0.0-0.7); EOS% 12.9 % (0.0-10.0); HEMATOCRIT 26.6 % (42.0-52.0); HEMOGLOBIN 8.7 g/dL (14.0-18.0); IMM GRAN# 0.02 X1000 (0.0-0.04); IMM GRAN% 1.5 % (0.0-0.5); LYMPH# 0.67 X1000 (1.2-3.4); LYMPH% 50.8 % (20.5-51.1); MCH 29.9 PG (27-31); MCHC 32.7 g/dL (33-37); MCV 91.4 FL (81-99); MONO# 0.24 X1000 (0.11-0.59); MONO% 18.2 % (1.7-9.3); NEUT% 15.1 % (42.2-75.2); PLT 125 X1000 (130-400); RBC 2.91 XMIL (4.7-6.1); RDW 16.4 % (11.5-14.5); WBC 1.32 X1000 (4.8-10.8)
[2018-04-24 08:09] LABS: BANDS 4 % (0-1); EOS 12 % (1-10); LYMPHS 48 % (21-51); MONO 20 % (1-9); SEGS 12 % (42-75)
[2018-04-24] MEDS: GRANIX SUBQ SCH (09:59)
[2018-04-24] MEDS: PROSCAR PO SCH (09:59)
[2018-04-24] MEDS: KLOR-CON PO SCH ×2 (09:59→20:29)
[2018-04-24] MEDS: XANAX PO SCH ×2 (10:00→20:29)
[2018-04-24] MEDS: CELEXA PO SCH (10:01)
[2018-04-24] MEDS ORDERED: KLOR-CON PO ONE (12:20)
--- NOTE | 2018-04-24 12:48 | PROGRESS NOTE ---
DATE: 04/24/2018 SUBJECTIVE: This patient states that he is feeling better. He is still complaining of lower abdominal pain. He is still having diarrhea, 2 episodes during the night, none during the day. For his C difficile colitis, he is receiving vancomycin p.o. He had fever yesterday at 101.2. Infectious Disease Department evaluated this patient. He has been placed on meropenem, which I will continue. OBJECTIVE: Vital Signs: Temperature 98.5 degrees, pulse 89, respiratory rate 16, blood pressure 113/63, oxygen saturation 94% on room air. HEENT: Head normocephalic. No trauma. PERRLA. Neck: Supple. No JVD. No masses. Central trachea. Chest: Clear to auscultation. No wheezing. No rales. Abdomen: Soft. Mild tenderness to palpation at the level of the lower abdomen. Extremities: No edema. No clubbing. No cyanosis. Neurological: Alert and oriented x3. No focal deficits. LABORATORY DATA: WBC 1.3, hemoglobin 8.7, hematocrit 26.6, platelets 125,000, neutrophil count, 0.20. Sodium 140, potassium 3, chloride 102, bicarbonate 26, BUN 1, creatinine 0.6, glucose 113, calcium 8.1. ASSESSMENT AND PLAN: 1. Abdominal pain with Clostridium difficile colitis. Continue with vancomycin p.o. Infectious Disease Department following this patient. 2. Pancytopenia with severe neutropenia, fever. Lab work is getting better. WBC increased to 1.3 and platelet count increased to 125,000. Neutrophil count increased to 0.2. 3. Hypokalemia. I will replace the potassium. 4. Hodgkin lymphoma, followed by Dr. Mullins. 5. Benign prostatic hypertrophy. Continue with the same treatment. 6. Hypothyroidism. Continue with Synthroid. 7. Anxiety. Continue with Xanax. 8. Hypertension. Will continue with the same management. Will monitor for now. Has been stable without any kind of blood pressure medication. 9. Gastroesophageal reflux disease. Continue with proton pump inhibitors. 10. Deep vein thrombosis prophylaxis with sequential compression devices. cc: Jorge Lyles MD
[2018-04-24] MEDS: MERREM 2 GM in NS 100 ML IV SCH (17:00)
[2018-04-24] MEDS: PERICOLACE PO SCH (20:29)
[2018-04-24] MEDS: RESTORIL PO SCH (20:30)
[2018-04-25] MEDS: MERREM 2 GM in NS 100 ML IV SCH ×2 (01:06→08:29)
[2018-04-25] MEDS: VANCOCIN PO SCH ×4 (01:06→20:10)
[2018-04-25] MEDS: MORPHINE IV PRN ×4 (01:34→19:30)
[2018-04-25] MEDS: PHENERGAN IV PRN ×4 (01:35→19:30)
[2018-04-25] MEDS: SODIUM CHLORIDE 0.9% INJ PRN (01:36)
[2018-04-25] MEDS: NS 1,000 ML IV SCH ×3 (01:41→18:01)
[2018-04-25] MEDS: SYNTHROID PO SCH (06:34)
[2018-04-25 07:22] LABS: BASO# 0.05 X1000 (0.0-0.2); BASO% 1.1 % (0.0-0.8); EOS# 0.26 X1000 (0.0-0.7); EOS% 5.8 % (0.0-10.0); HEMATOCRIT 29.7 % (42.0-52.0); HEMOGLOBIN 9.1 g/dL (14.0-18.0); IMM GRAN# 0.25 X1000 (0.0-0.04); IMM GRAN% 5.5 % (0.0-0.5); LYMPH# 1.74 X1000 (1.2-3.4); LYMPH% 38.5 % (20.5-51.1); MCHC 30.6 g/dL (33-37); MCV 94.6 FL (81-99); MONO# 0.77 X1000 (0.11-0.59); MPV 9.8 FL (7.4-10.4); NEUT# 1.45 X1000 (1.4-6.5); NEUT% 32.1 % (42.2-75.2); PLT 195 X1000 (130-400); RBC 3.14 XMIL (4.7-6.1); RDW 18.1 % (11.5-14.5); WBC 4.52 X1000 (4.8-10.8)
[2018-04-25 07:36] LABS: BUN 1 mg/dL (8-22); CREATININE 0.6 mg/dL (0.7-1.2); ESTIMATED GFR > 60; GLUCOSE 89 mg/dL (70-104); TCO2 27 mmol/L (25-35)
[2018-04-25 07:43] LABS: BANDS 10 % (0-1); EOS 6 % (1-10); LYMPHS 44 % (21-51); MONO 4 % (1-9); SEGS 28 % (42-75)
[2018-04-25 08:11] LABS: CHLORIDE 105 mmol/L (98-107); POTASSIUM 3.5 mmol/L (3.5-5.1); SODIUM 142 mmol/L (136-145)
[2018-04-25 08:20] LABS: AGAP 10; COSMO 278
[2018-04-25] MEDS: KLOR-CON PO SCH ×2 (08:28→20:10)
[2018-04-25] MEDS: CELEXA PO SCH (08:28)
[2018-04-25] MEDS: PROSCAR PO SCH (08:28)
[2018-04-25] MEDS: XANAX PO SCH ×2 (08:28→20:10)
--- NOTE | 2018-04-25 09:51 | PROGRESS NOTE ---
DATE: 04/25/2018 SUBJECTIVE: The patient seems to be getting better and he is feeling better as well. He is still complaining of abdominal pain and sometimes it is severe, 10/10 in intensity. It has been controlled with pain medication. He is still having some episodes of diarrhea. We will advance his diet to a regular diet. His white blood cells improved to 4.5 and the neutrophil count to 1.45. IV antibiotics have been stopped. OBJECTIVE: Vital Signs: Temperature 98.7 degrees, pulse 91, respiratory rate 16, blood pressure 124/74, oxygen saturation 98 on 2 L of nasal cannula. HEENT: Head normocephalic. No trauma. PERRLA. Neck: Supple. No JVD. No masses. Central trachea. Chest: Clear to auscultation. No wheezing. No rales. Abdomen: Soft. Tenderness to palpation at the level of the lower abdomen mostly, also periumbilical area. Extremities: No edema. No clubbing. No cyanosis. Neurological Examination: The patient is alert and oriented x3. No focal deficits. Laboratory: WBC 4.5, hemoglobin 9.1, hematocrit 29.7, platelets 195,000, neutrophil count 1.45. Sodium 142, potassium 3.5, chloride 105, bicarbonate 27, BUN 1, creatinine 0.6, glucose 89, calcium 8. ASSESSMENT AND PLAN: 1. Clostridium difficile colitis and abdominal pain. Continue vancomycin by mouth. Infectious disease department following this patient. Continue pain medication. 2. Pancytopenia with severe neutropenia, fever, resolved. Actually, the platelet count is normal today. The WBC is elevated at 4.5 and neutrophil count 1.45. He is still anemic but getting better. We will stop the intravenous antibiotics. We will monitor this patient closely. His diet will be advanced. 3. Hypokalemia, resolved. 4. Hodgkin's lymphoma, followed by Dr. Mullins. 5. Benign prostatic hypertrophy. Continue with the same treatment. 6. Hypothyroidism. Continue with Synthroid. 7. Anxiety. Continue with Xanax. 8. Hypertension. Continue with the same management. He has been stable without any kind of blood pressure medication. 9. Gastroesophageal reflux disease. Continue with proton pump inhibitors. 10. Deep vein thrombosis prophylaxis with sequential compression devices. cc: Jorge Lyles MD
[2018-04-25] MEDS: GRANIX SUBQ SCH (10:57)
--- NOTE | 2018-04-25 11:03 | INFECTIOUS DISEASE PROGRESS NO ---
DATE: 04/25/2018 PRESENT ILLNESS: The patient has Clostridium difficile diarrhea. He tells me that his stool is still very loose, but he is going less frequently. The patient also had neutropenic fever. He has not had any fever since the last fever spike 2 days ago and his white blood cell count is up to 4,520 and the absolute neutrophil count is up to 1,450. MEDICATIONS: The patient currently is receiving meropenem intravenously and vancomycin p.o. PHYSICAL EXAMINATION: Vital Signs: Temperature is 98.7 degrees, pulse 91, respirations 16, blood pressure 124/74. General: This is a fairly healthy-appearing, obese, middle-aged male. He is in no acute distress at this time, although he did tell me that he continues to have left lower quadrant pain. Head, eyes, ears, nose, throat: He can hear my spoken words and see near objects. He does not have any white patches on his tongue. Neck: No meningismus. Lungs: Clear to auscultation. Cardiovascular: Heart rate is regular. Abdomen: Soft and not really tender. Bowel sounds are present. Neurologic: Patient is alert. He can move his extremities. There is no tremor. LAB AND X-RAY: The patient's CBC is 4,520, absolute neutrophil count is 1,450, hemoglobin is 9.1, and platelet count is 195,000. Creatinine is 0.6. GFR is greater than 60. There is no new radiographic study today. ASSESSMENT AND PLAN: The patient's white cell count is recovering. I have discontinued meropenem. I plan to continue p.o. vancomycin. The patient would very much like to have a regular diet. He says he cannot tolerate the liquid diet that he is getting now and I think it would be reasonable to change him to a regular diet. COMORBIDITIES: He unfortunately has Hodgkin disease and gastroesophageal reflux disease. cc: Timmy Rosenberg MD
[2018-04-25] MEDS: RESTORIL PO SCH (20:10)
[2018-04-25] MEDS: PERICOLACE PO SCH (20:10)
[2018-04-26] MEDS: VANCOCIN PO SCH ×3 (01:04→15:20)
[2018-04-26] MEDS: MORPHINE IV PRN ×3 (01:08→12:10)
[2018-04-26] MEDS: NS 1,000 ML IV SCH (03:13)
[2018-04-26] MEDS: SYNTHROID PO SCH (06:03)
[2018-04-26] MEDS: PHENERGAN IV PRN ×2 (06:16→12:10)
--- NOTE | 2018-04-26 07:04 | EKG Report ---
Test Performed on : 04/24/2018 03:43:27 AM Test Reason : heart rate Blood Pressure : / mmHG Vent. Rate : 108 BPM Atrial Rate : 108 BPM P-R Int : 172 ms QRS Dur : 092 ms QT Int : 372 ms P-R-T Axes : 024 000 047 degrees QTc Int : 498 ms Sinus tachycardia. with frequent premature ventricular complexes. Nonspecific T wave abnormality Abnormal ECG When compared with ECG of 26-MAR-2018 16:40, premature ventricular complexes. are now present QT has shortened Confirmed by Beverly POON, Joseph Samaniego ([id number]) on 04/26/2018 9:38:27 AM
[2018-04-26 07:27] LABS: BASO# 0.09 X1000 (0.0-0.2); BASO% 1.1 % (0.0-0.8); EOS# 0.19 X1000 (0.0-0.7); EOS% 2.3 % (0.0-10.0); HEMATOCRIT 28.3 % (42.0-52.0); HEMOGLOBIN 8.7 g/dL (14.0-18.0); IMM GRAN# 1.37 X1000 (0.0-0.04); IMM GRAN% 16.3 % (0.0-0.5); LYMPH# 1.61 X1000 (1.2-3.4); LYMPH% 19.1 % (20.5-51.1); MCH 29.2 PG (27-31); MCHC 30.7 g/dL (33-37); MONO# 1.25 X1000 (0.11-0.59); MONO% 14.9 % (1.7-9.3); MPV 9.9 FL (7.4-10.4); NEUT% 46.3 % (42.2-75.2); PLT 202 X1000 (130-400); RBC 2.98 XMIL (4.7-6.1); RDW 18.4 % (11.5-14.5); WBC 8.41 X1000 (4.8-10.8)
[2018-04-26 07:33] LABS: EOS 2 % (1-10); LYMPHS 12 % (21-51); MONO 28 % (1-9); SEGS 58 % (42-75)
[2018-04-26 07:35] LABS: AGAP 10; ALB/GLOB RATIO 1.2; ALBUMIN 2.7 g/dL (3.5-5.0); ALKALINE PHOSPHATASE 90 U/L (32-122); BUN 1 mg/dL (8-22); CALCIUM 8.4 mg/dL (8.8-10.2); CHLORIDE 105 mmol/L (98-107); COSMO 281; CREATININE 0.6 mg/dL (0.7-1.2); ESTIMATED GFR > 60; GLUCOSE 93 mg/dL (70-104); GOT 19 U/L (10-34); GPT 18 U/L (10-44); POTASSIUM 3.4 mmol/L (3.5-5.1); SODIUM 143 mmol/L (136-145); TCO2 28 mmol/L (25-35); TOTAL BILIRUBIN 0.55 mg/dL (0.20-1.00); TOTAL PROTEIN 4.9 g/dL (6.3-8.3)
[2018-04-26] MEDS: PROSCAR PO SCH (09:29)
[2018-04-26] MEDS: XANAX PO SCH (09:29)
[2018-04-26] MEDS: CELEXA PO SCH (09:29)
[2018-04-26] MEDS: ZYLOPRIM PO SCH (09:29)
[2018-04-26] MEDS: KLOR-CON PO SCH (09:30)
[2018-04-26] MEDS ORDERED: KLOR-CON PO ONE (12:12)
[2018-04-26 15:33] VITALS: BP 160/82
--- NOTE | 2018-04-26 16:08 | INFECTIOUS DISEASE PROGRESS NO ---
DATE: 04/26/2018 PRESENT ILLNESS: The patient has Clostridium difficile diarrhea. His stool is less frequent and it is beginning to have more form to it. MEDICATIONS: The patient is on vancomycin p.o. PHYSICAL EXAMINATION: Vital Signs: Temperature 98.4 degrees, pulse 87, respirations 16, blood pressure 147/64. General: This is an obese, middle-aged male. He is in no acute distress. Head, Eyes, Ears, Nose, Throat: He can hear my spoken words and see near objects. He does not have any white patches on his tongue. Neck: No stiffness. Lungs: Clear to auscultation. Cardiovascular: The heart rate is regular. Abdomen: Soft and not tender. Bowel sounds are present. Neurologic: The patient is alert. He can move his extremities. There is no tremor. LAB AND X-RAY: The patient's CBC shows a white count of 8410, hemoglobin 8.7, and platelet count 202,000. Creatinine 0.6, GFR greater than 60. Liver function studies are normal. ASSESSMENT AND PLAN: The patient has Clostridium difficile diarrhea. His white blood cell count has recovered. His diarrhea is better. I discussed with the patient treatments. The patient does not have coverage for p.o. vancomycin. I told him that Flagyl is a drug that is a generic and much less expensive. It probably is not as good as vancomycin. The patient already has had 4 days of treatment with vancomycin. He is much better and I told him that I think it is a definite possibility that we would give him Flagyl for 10 more days and he would do well, but as mentioned above, it may not continue to do well and if that happens, I will have to switch him to p.o. vancomycin. Specifically, I told the patient to call me if he is not improving or if his diarrhea gets worse, and at that time we will definitely switch to p.o. vancomycin again. I told the patient that while he is on Flagyl, he cannot drink any alcoholic beverage. COMORBIDITIES: The patient has Hodgkin disease and gastroesophageal reflux disease. cc: Timmy Rosenberg MD
--- NOTE | 2018-04-26 18:07 | PROGRESS NOTE ---
DATE: 04/26/2018 SUBJECTIVE: Patient's diarrhea has decreased. He is still having some loose stool decreased down to approximately 3 stools. He is still reporting some abdominal pain. He is continuing to receive morphine and [place] as needed for pain. OBJECTIVE: Vital Signs: Temperature 98.1 degrees, pulse 83, respirations 17, blood pressure 160/82. General: Patient is awake, alert, no acute distress. LABORATORY: Hematology. WBC 8.41, hemoglobin 8.7, hematocrit 28.3, MCV 95.0, platelets 202,000. Chemistry. Sodium 143, potassium 3.4, chloride 105, CO2 28, BUN 1, creatinine 0.6, glucose 93. ASSESSMENT AND PLAN: 1. Clostridium difficile colitis. 2. Pancytopenia with neutropenia. 3. Hodgkin lymphoma following with Dr. Mullins. 4. Abdominal pain. 5. Hypokalemia improving. Continue current medications except would recommend tapering off of IV pain medication and using p.o. medication. Continue antibiotics. Patient will need 2 weeks of vancomycin for C. difficile colitis. Recommend once discharged patient follow back with us in the office. Further plans to be made according to his progress. Patient was also seen by Dr. Padron. Dictated by JAMES Thibodeaux for Juan Padron MD cc: JAMES Alvarez MD
--- NOTE | 2018-04-26 18:15 | DISCHARGE SUMMARY ---
ADMISSION DATE: 04/21/2018 DISCHARGE DATE: 04/26/2018 DISCHARGE DIAGNOSES: 1. Pancytopenia with severe neutropenia/fever, resolved. 2. Clostridium difficile colitis, abdominal pain. 3. Hypokalemia, resolved. 4. Hodgkin lymphoma. 5. Benign prostatic hypertrophy. 6. Anxiety. 7. Hypothyroidism. 8. Hypertension. 9. Gastroesophageal reflux disease. HOSPITAL COURSE: A 62-year-old, male with a past medical history of Hodgkin lymphoma, hypertension, GERD, BPH, coronary artery disease, gout, hypothyroidism, anxiety, and hypokalemia, admitted on 04/21/2018. He was recently hospitalized from 03/26/2018 to 04/18/2018, and treated for abdominal pain due to enterocolitis, and hypokalemia. He presented with the same complaints the day of admission, associated with nausea, adela-colored loose, around 3 to 4 per day, and small amount. He states that he took some enemas the previous night and he believes he needed to have more bowel movements. His abdominal pain is severe and located at the level of the lower abdominal area. He is also complaining of his urine to be darker than normal, and fever. Around a week ago, prior to admission, he got chemotherapy that is known as the [place], also called Adriamycin. He said that he felt good the day after the chemotherapy, but then he started having abdominal pain that has been going on for probably a week. CT of the abdomen did not show any signs of enterocolitis at this time, but he was pancytopenic with extremely low white blood cell and neutrophil counts. Lactate level was up. He was admitted and placed on antibiotics. We collected some stool samples for culture and other studies, and transferred him to a private room due to his pancytopenia and neutropenia. Gastroenterology Department was consulted and they recommended to continue symptomatic treatment and supportive care. Hematology/Oncology evaluated this patient and they held treatment at this time until this patient's acute illness Resolved, and also we continued with supportive measures and treatment. We received a C difficile toxin that was positive, as well as the antigen, so he was started on p.o. vancomycin and he was tolerating that treatment really good. The abdominal pain was decreasing slowly and he was getting better on a daily basis, as well as his white blood cell count and neutrophil count, which are normal today. This patient has mild symptoms today and just complaining of some abdominal pain. He has been taking Orange at home and he believes that is going to be enough for him. He will be discharged. Initially we thought about sending this patient with vancomycin, but they believe they cannot afford this medication, so it was switched to Flagyl for 10 days and follow up with Dr. Rosenberg after completing the treatment. Also follow up with follow up with Hematology/Oncology Department as an outpatient to continue his treatment for the Hodgkin lymphoma. PHYSICAL EXAMINATION: Vital Signs: Temperature 98.1 degrees, pulse 83, respiratory rate 17, blood pressure 160/82, oxygen saturation 100% on room air. HEENT: Head normocephalic. No trauma. PERRLA. Neck: Supple. No JVD. No masses. Central trachea. Chest: Clear to auscultation. No wheezing. No rales. Abdomen: Soft. Mild tenderness to palpation at the level of the lower abdomen. No signs of peritoneal irritation. Extremities: No edema. No clubbing. No cyanosis. Neurological: The patient is alert and oriented x3. No focal neurological deficits. LABORATORY DATA: WBC 8.4, hemoglobin 8.7, hematocrit 28.3, platelet count 202,000. Sodium 143, potassium 3.4, chloride 105, bicarbonate 28, BUN 1, creatinine 0.6, glucose 93, calcium 8.4, albumin 2.7. DISCHARGE MEDICATIONS: 1. Flagyl 500 mg p.o. q.8 hours to complete 10 more days. 2. Berenice-Colace 2 tablets p.o. at bedtime. 3. Synthroid 100 mcg p.o. daily. 4. Citalopram 20 mg p.o. daily. 5. Allopurinol 300 mg p.o. 6. Singulair 10 mg p.o. daily. 7. Omeprazole 40 mg p.o. daily. 8. Proscar 5 mg p.o. daily. 9. Temazepam 15 mg p.o. every day at bedtime. 10. MBX solution 15 mL mouth/throat 4 times a day as needed. 11. Alprazolam 1 mg p.o. 3 times a day. 12. Phenergan 12.5 mg p.o. every 4 to 6 hours p.r.n. nausea or vomiting. 13. Orange 10 one tablet p.o. every 4 hours p.r.n. as needed. TIME DISCHARGING THIS PATIENT: Thirty-five minutes. cc: Jorge Lyles MD
== END 2018-04-26 17:55 | disposition home or self-care (01) | DRG 372 ==
LOC: ED 09:03 → SUATTDRO 13:33 → 3N 13:33
PROVIDERS: ATTEND Internal Medicine
CPT/HCPCS: 71020; 71046; 74000; 74018; 74177; 76700; 80048; 80053; 81001; 82270; 83605; 83735; 85025; 86140; 87040; 87045; 87046; 87088; 87324; 87449; 93005; 93010; 94760; 94761; 94799; A9270; C9113; J1446; J1447; J1956; J2185; J2270; J2405; J2550; J3480; J7030; J7040; Q9967; S0030; S0138; S0164